=== PATIENT | female | born 2005 | race Caucasian/White ===

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

== ENCOUNTER → 2025-09-16 | Outpatient (CLI) | payer OTHER | END | disposition home or self-care (01) | LOC: LAB 10:28 → LAB SHORT 10:28 | DX: R82.81 Pyuria (principal) | CPT/HCPCS: 87077; 87086; 87186 ==